=== PATIENT | female | born 1980 | race Caucasian/White ===

== ENCOUNTER 2016-08-03 07:10 | Inpatient (IN) | payer OTHER ==
[~2016-08-03] VITALS: Ht 154.9 cm; Wt 73.5 kg
[2016-08-03] MEDS ORDERED: RINGERS SOLUTION,LACTATED 1,000 ML IV PRN (09:03)
[2016-08-03] MEDS ORDERED: OXYTOCIN 30 UNITS/LACT RINGERS 500 ML IV ONE (09:03)
[2016-08-03 09:08] VITALS: BP 115/72
[2016-08-03] MEDS ORDERED: CITRIC ACID/SODIUM CITRATE 30 ML SOLUTION UDCUP PO PRN (09:15)
[2016-08-03] MEDS ORDERED: LIDOCAINE HCL/PF 1% 30 ML VIAL INJ PRN (09:15)
[2016-08-03] MEDS ORDERED: METOCLOPRAMIDE HCL 5 MG/ML 2 ML VIAL IVP PRN (09:15)
[2016-08-03 09:39] LABS: BASOPHILS # (AUTO) 0.07 K/uL (0.00-0.20); BASOPHILS % (AUTO) 0.5 % (0.0-2.0); EOSINOPHILS # (AUTO) 0.05 K/uL (0.00-0.70); EOSINOPHILS % (AUTO) 0.37 % (1.0-6.0); HEMATOCRIT 38.4 % (36-46); HEMOGLOBIN 12.9 g/dL (12.0-16.0); LYMPHOCYTES # (AUTO) 1.3 K/uL (1.0-4.8); LYMPHOCYTES % (AUTO) 9.3 % (22.0-44.0); MEAN CORPUSCULAR HEMOGLOBIN 30.9 pg (26.0-34.0); MEAN CORPUSCULAR HGB CONC 33.6 G/dL (31.0-37.0); MEAN CORPUSCULAR VOLUME 92 fL (80-100); MONOCYTES # (AUTO) 0.6 K/uL (0.1-1.0); NEUTROPHILS # (AUTO) 11.9 K/uL (1.8-7.7); RED BLOOD CELL COUNT(AUTO) 4.17 MIL/uL (4.00-5.20); RED CELL DISTRIBUTION WIDTH 13.5 % (11.5-14.5); WHITE BLOOD COUNT (AUTO) 13.9 K/uL (4.5-11.0)
[2016-08-03 09:46] LABS: NEUTROPHILS % (AUTO) 85.9 % (40.0-70.0)
[2016-08-03 09:56] LABS: RBC MORPHOLOGY COMMENT NORMAL RBC MORPH
[2016-08-03] MEDS: RINGERS SOLUTION,LACTATED 1,000 ML IV SCH ×2 (10:17→15:45)
[2016-08-03] MEDS: FentaNYL CITRATE-PF 100 MCG/2 ML VIAL IVP PRN ×2 (10:17→10:24)
[2016-08-03] MEDS ORDERED: BUPIVACAINE HCL/PF 0.25% 10 ML VIAL ONE (11:16)
[2016-08-03] MEDS ORDERED: LIDOCAINE HCL/PF 2% 5 ML VIAL ONE (11:17)
[2016-08-03] MEDS ORDERED: FentaNYL/BUPIV 0.125%/NS/PF 200 ML ED ONE (11:17)
[2016-08-03 11:21] VITALS: BP 114/57
[2016-08-03] MEDS ORDERED: FentaNYL/BUPIV 0.125%/NS/PF 200 ML ED PRN (12:13)
[2016-08-03] MEDS ORDERED: PROMETHAZINE HCL 12.5 MG in SODIUM CHLORIDE 0.9% 50 ML IV PRN (12:15)
[2016-08-03] MEDS ORDERED: NALBUPHINE HCL 10 MG/ML VIAL IVP PRN ×2 (12:15)
[2016-08-03] MEDS ORDERED: ONDANSETRON HCL 4 MG/2 ML VIAL IVP PRN (12:15)
[2016-08-03] MEDS ORDERED: DiphenhydrAMINE HCL 50 MG/ML VIAL IVP PRN (12:15)
[2016-08-03] MEDS ORDERED: AMPICILLIN SODIUM 2 GM/NS 100 ML IV ONE (12:30)
[2016-08-03] MEDS ORDERED: OXYTOCIN 30 UNITS/LACT RINGERS 500 ML IV PRN (12:33)
[2016-08-03] MEDS ORDERED: AMPICILLIN SODIUM 1 GM/NS 50 ML IV SCH (17:00)
[2016-08-03] MEDS ORDERED: METHYLERGONOVINE MALEATE 0.2 MG/ML VIAL IM ONE (17:30)
[2016-08-03] MEDS ORDERED: OXYTOCIN 20 UNITS in RINGERS SOLUTION,LACTATED 1,000 ML IV ONE (17:45)
[2016-08-03] MEDS ORDERED: MISOPROSTOL 100 MCG TABLET PR ONE (17:45)
[2016-08-03] MEDS ORDERED: BENZOCAINE 20%/MENTHOL 56 GM SPRAY CANISTER TP PRN (18:15)
[2016-08-03] MEDS ORDERED: GLYCERIN/WITCH HAZEL LEAF 40 PADS JAR TP PRN (18:15)
[2016-08-03] MEDS ORDERED: ACETAMINOPHEN/CODEINE 300-30 MG TABLET PO PRN ×2 (18:15)
[2016-08-03] MEDS ORDERED: LANOLIN 7 GM OINTMENT TP PRN (18:15)
[2016-08-03] MEDS: IBUPROFEN 600 MG TABLET PO PRN (18:54)
[2016-08-03] MEDS ORDERED: OXYGEN THERAPY IH SCH (20:00)
[2016-08-03] MEDS: SENNA/DOCUSATE SODIUM 187-50 MG TABLET PO SCH (20:57)
[2016-08-03] MEDS: MAGNESIUM HYDROXIDE SUSPENSION 30 ML UDCUP PO SCH (20:57)
[2016-08-04] MEDS: IBUPROFEN 600 MG TABLET PO PRN (08:08)
[2016-08-04] MEDS: SENNA/DOCUSATE SODIUM 187-50 MG TABLET PO SCH (08:56)
[2016-08-04] MEDS: MAGNESIUM HYDROXIDE SUSPENSION 30 ML UDCUP PO SCH (08:56)
[2016-08-04] MEDS ORDERED: IBUP-2070 PO (11:34)
== END 2016-08-04 20:00 | disposition home or self-care (01) | DRG 775 ==
LOC: 4S 07:10 → OBSVTOIN 07:10
PROVIDERS: ADMIT Obstetrics & Gynecology; ATTEND Obstetrics & Gynecology
PROC: 10E0XZZ Delivery of Products of Conception, External Approach (ICD-10-PCS; principal; 2016-08-03)
PROC: 0KQM0ZZ Repair Perineum Muscle, Open Approach (ICD-10-PCS; 2016-08-03)
PROC: 0UQMXZZ Repair Vulva, External Approach (ICD-10-PCS; 2016-08-03)
PROC: 3E0S3CZ (ICD-10-PCS; 2016-08-03)
PROC: 00HU33Z Insertion of Infusion Device into Spinal Canal, Percutaneous Approach (ICD-10-PCS; 2016-08-03)
DX: O63.0 Prolonged first stage (of labor) (principal); O70.1 Second degree perineal laceration during delivery; O69.81X0 Labor and delivery complicated by cord around neck, without compression, not applicable or unspecified; O71.82 Other specified trauma to perineum and vulva; O75.89 Other specified complications of labor and delivery; Z37.0 Single live birth; Z3A.38 38 weeks gestation of pregnancy
CPT/HCPCS: 86850; 86900; 86901; 89060; J0290; J2210; J2590; J3010; J3490; J7120